=== PATIENT | male | born 1930 | race Caucasian/White ===

== ENCOUNTER → 2016-12-14 | Outpatient (REF) | payer MEDICARE ==
[2016-12-14 18:53] LABS: PERCENT SATURATION 37.2 % (19.7-37.4)
== END ==
LOC: M LAB REF 16:49
PROVIDERS: ATTEND Internal Medicine Nephrology
DX: D50.9 Iron deficiency anemia, unspecified (principal)

== ENCOUNTER → 2017-05-24 | Outpatient (CLI) | payer MEDICARE, BC ==
--- NOTE | 2017-05-24 12:15 | REP ---
Clinical: Renal failure. Technique: Real time teague scale ultrasound examination using curved array transducer. Findings: The kidneys are increased in parenchymal echogenicity and demonstrate renovascular calcifications as well as few scattered cysts consistent with chronic medical renal disease. No evidence for significant mass lesion, nephrolithiasis, hydronephrosis or perinephric fluid. The bladder is incompletely distended. Right kidney measures 10.3 x 6.0 x 5.5 cm including multiple cysts measuring up to 8 mm in the mid pole cortex. Left kidney measures 10.6 x 6.5 x 5.0 cm including multiple cysts measuring up to 3.2 cm in the mid pole parapelvic region. Impression: Evidence for chronic medical renal disease and few bilateral cysts as described above. No hydronephrosis. Signed by Gilberto Brown MD 05/24/2017 11:13 A
== END ==
LOC: M RAD 10:22
PROVIDERS: ATTEND Internal Medicine Nephrology
DX: N17.9 Acute kidney failure, unspecified (principal)

== ENCOUNTER → 2018-01-31 | Outpatient (CLI) | payer MEDICARE, BC | LOC: M RAD 10:27 | DX: Z01.818 Encounter for other preprocedural examination (principal); N18.6 End stage renal disease (principal) | CPT/HCPCS: G0365 ==

== ENCOUNTER → 2018-02-14 | Outpatient (REF) | payer MEDICARE, BC ==
[2018-02-14 14:20] LABS: VITAMIN B12 LEVEL 321 PG/ML
[2018-02-14 14:21] LABS: FOLATE 10.3 NG/ML
[2018-02-14 14:24] LABS: FERRITIN 107 NG/ML (26-388); IRON (FE) 54 UG/DL (65-175); PERCENT SATURATION 21.3 % (19.7-50.0); TOTAL IRON BINDING CAPACITY 254 UG/DL (250-450)
== END ==
LOC: M LAB REF 13:27
DX: D64.9 Anemia, unspecified (principal)
CPT/HCPCS: 82746

== ENCOUNTER 2018-03-03 12:53 | Day surgery (SDC) | payer MEDICARE, BC ==
[2018-03-03] MEDS ORDERED: LR 1,000 ML IV ×2 (13:00)
[2018-03-03] MEDS ORDERED: LIDOCAINE 1% MDV 20ML VIAL SQ ×2 (13:00)
[2018-03-03] MEDS: ISOVUE-300 61% 50ML VIAL (Q9967) As Ordered ×2 (13:32)
[2018-03-03 13:50] LABS: BEDSIDE GLUCOSE 173 MG/DL (83-110)
[2018-03-03] MEDS: LIDOCAINE 1% SDV INJ 30 ML VIAL As Ordered ×2 (14:58)
[2018-03-03] MEDS: BUPIVACAINE HCL 0.5% 30 ML VIAL As Ordered ×2 (14:58)
[2018-03-03] MEDS ORDERED: LIDOCAINE 2% INJ 100 MG/5 ML SYRINGE As Ordered ×2 (15:07)
[2018-03-03] MEDS ORDERED: MIDAZOLAM INJ 2 MG/2 ML VIAL (J2250) As Ordered ×2 (15:07)
[2018-03-03] MEDS ORDERED: fentaNYL 100 MCG/2 ML INJECTION (J3010) As Ordered ×2 (15:07)
[2018-03-03] MEDS ORDERED: PROPOFOL 200 MG/20 ML VIAL As Ordered ×2 (15:07)
[2018-03-03] MEDS: HEPARIN SOD (PORCINE) 5000 UNITS/ML VIAL As Ordered ×2 (15:19)
== END 2018-03-03 16:35 | disposition home or self-care (01) ==
LOC: M SDC 12:53
DX: N18.4 Chronic kidney disease, stage 4 (severe) (principal); I12.9 Hypertensive chronic kidney disease with stage 1 through stage 4 chronic kidney disease, or unspecified chronic kidney disease; E03.9 Hypothyroidism, unspecified; E10.9 Type 1 diabetes mellitus without complications; Z79.4 Long term (current) use of insulin; N40.0 Benign prostatic hyperplasia without lower urinary tract symptoms; Z79.899 Other long term (current) drug therapy
CPT/HCPCS: 36821

== ENCOUNTER → 2018-04-18 | Outpatient (REF) | payer MEDICARE, BC ==
[2018-04-18 14:43] LABS: TOTAL PROTEIN 7.5 GM/DL (6.4-8.2)
[2018-04-18 14:54] LABS: URINE TOTAL PROTEIN 253.6 MG/DL (0-12)
[2018-04-19 13:43] LABS: ALBUMIN 4.18 GM/DL (3.29-5.55); ALBUMIN % 55.7 % (55.8-66.1); ALPHA-1-GLOBULIN % 3.7 % (2.9-4.9); ALPHA-1-GLOBULINS 0.28 GM/DL (0.17-0.41); ALPHA-2-GLOBULINS 0.75 GM/DL (0.42-0.99); BETA-1-GLOBULINS % 5.3 % (4.7-7.2); BETA-2-GLOBULINS 0.47 GM/DL (0.19-0.55); BETA-2-GLOBULINS % 6.3 % (3.2-6.5)
[2018-04-19 13:44] LABS: GAMMA GLOBULINS 1.43 GM/DL (0.65-1.58)
[2018-04-21 00:11] LABS: KAPPA/LAMBDA RATIO URINE 6.23 (2.04-10.37)
[2018-04-21 14:39] LABS: UPEP INTERPRETATION NO M-SPIKE NOTED; URINE VOLUME RANDOM ML
== END ==
LOC: M LAB REF 13:51
DX: R80.9 Proteinuria, unspecified (principal)
CPT/HCPCS: 84165

== ENCOUNTER → 2018-06-22 | Outpatient (CLI) | payer MEDICARE, BC ==
[~2018-06-22] MED LIST: ISOVUE-300 61% 50ML VIAL (Q9967) As Ordered; MIDAZOLAM INJ 2 MG/2 ML VIAL (J2250) As Ordered; fentaNYL 100 MCG/2 ML INJECTION (J3010) As Ordered
== END | disposition home or self-care (01) ==
LOC: M IRPRO 08:05
DX: T82.590A Other mechanical complication of surgically created arteriovenous fistula, initial encounter (principal); N18.9 Chronic kidney disease, unspecified
CPT/HCPCS: 36901